=== PATIENT | female | born 1955 | race Caucasian/White ===

== ENCOUNTER → 2020-07-13 | Outpatient (CLI) | payer MEDICARE, OTHER ==
[~2020-07-13] MED LIST: AMLO1TAB24 PO; HYDR50TAB; LEVO175T2; RAMI1CAP26; SIMV10TA21
--- NOTE | 2020-07-28 12:44 | REP ---
DUPLEX EXTREMITY VENOUS ULTRASOUND BILATERAL STUDY WITH REFLUX EVALUATION HISTORY: Rule out reflux. Status post removal right greater saphenous vein. Chronic venous hypertension. Chronic ulcer. COMPARISON: No comparison images. FINDINGS: There is no evidence of deep vein thrombosis. In the right, the mid and distal greater saphenous vein is not apparent consistent with removal. A 7-mm segment of proximal greater saphenous vein is seen demonstrating 6.9 second duration reflux. The lesser saphenous vein is 6-mm in diameter without demonstrable reflux. Multiple collaterals are seen extending off the proximal greater saphenous vein and these show reflux as well. Reflux is seen in the common femoral vein segment 6.1 seconds in duration. Reflux was observed in the deep system in the proximal, mid and distal femoral vein as well ranging from 1.7 to 5.0 second duration. Reflux was observed in the popliteal vein as well 4.8 seconds in duration. On the left, the greater saphenous vein is not seen at mid thigh and knee level. Multiple collaterals are seen extending from the proximal segment of the greater saphenous vein with reflux. Reflux is seen in the proximal common femoral vein deep system, 6.6 seconds in duration. AP dimension of the remaining proximal greater saphenous vein on the left is 14 mm. A 7.3 second duration reflux is seen. No other deep system reflux or other superficial system reflux is seen. IMPRESSION: Bilateral superficial and deep system venous reflux as above. Findings consistent with prior removal of mid and distal greater saphenous veins bilaterally. MTDD
== END ==
LOC: M RAD 12:37
PROVIDERS: ATTEND Surgery
DX: I87.313 Chronic venous hypertension (idiopathic) with ulcer of bilateral lower extremity (principal); L97.812 Non-pressure chronic ulcer of other part of right lower leg with fat layer exposed; L97.822 Non-pressure chronic ulcer of other part of left lower leg with fat layer exposed

== ENCOUNTER → 2020-07-19 | Outpatient (POV) | payer MEDICARE, OTHER ==
--- NOTE | 2020-07-20 14:44 | IRCOV ---
[facility] IR Consult Office Visit IR Consult Office Visit DATE: Jul 19, 2020 Patient agreed to this telephone consultation. I spent 30 minutes reviewing patient's records, imaging and talking to the patient. REASON FOR CONSULTATION/CHIEF COMPLAINT: Venous stasis ulcers. Venous hypertension. HISTORY OF PRESENT ILLNESS: 64-year-old female with 25-year-old long history of venous problems in both lower extremities. She is referred for chronic right lower extremity venous stasis ulcers. She describes one ulcer just below the knee and a second ulcer on the inside of the right ankle. She does get lower extremity swelling which is somewhat helped by compression therapy. She reports several vein stripping procedures over the course of the past 25 years, at [place]. She continued to have lower extremities swelling, pain and ulcers. She then went on to varicose vein foam injections which she states have not helped. She's had no prior laser/ RF ablations therapy, always manual vein stripping. She states she is severely debilitated by the ulcers and weeping from her lower extremities. These affect her activities of daily living and her hobbies. She states she had a venogram performed to look at central venous drainage at [place] and reports there was no central venous occlusion. She denies prior DVT. ALLERGIES: Please see below. HOME MEDICATIONS: Please see below. PAST MEDICAL HISTORY: Venous stasis ulcer. Pseudomonas infection. Hypertension. Hypothyroid PAST SURGICAL HISTORY: Multiple bilateral lower extremity vein stripping. Varicose vein Foam therapy. Tonsillectomy knee surgery FAMILY HISTORY: History of varicose veins SOCIAL HISTORY: Nonsmoker. Occasional alcohol. Denies drugs. REVIEW OF SYSTEMS: Otherwise negative PHYSICAL EXAMINATION: No video on patient side LABORATORY DATA: No recent labs Imaging: I personally reviewed the bilateral lower extremity venous reflux study performed June 2020. Right lower extremity GSV ligated 2 cm from junction. There are collaterals and perforators in the region. There is reflux at the saphenofemoral junction. Beyond that there are small collaterals and perforators. The LSV appears dilated. Left lower extremity; GSV ligated 2 cm from junction. There are collaterals and perforators in the region. There is reflux at the saphenofemoral junction. Beyond that there are small collaterals and perforators. ASSESSMENT/PLAN: 64-year-old female with extensive bilateral lower extremity venous hypertension associated with pain, swelling and ulcers affecting her daily activities. These initially abated after her vein strippings however when she ceased compression therapy, they recurred. These are not helped by foam injections. Given the appearance of the most recent ultrasound, it's unlikely that we'll find a significant length of vein, catheterizable for laser treatment. However, a more detailed venous mapping to look for perforators and catheterizable superficial vein is worthwhile. We will schedule the patient for further detailed venous mapping and EVLT in the same session if appropriate. In the meantime, she would benefit from pantyhose bilateral compression therapy 30- 40 mmHg. We will provide the patient with a prescription and directions on where to obtain these. I spent 30 minutes in consultation with the patient. Thank you for this referral. CC KAREN Harley MD Jul 20, 2020 14:44
== END ==
LOC: M TMIRPOV 13:19
PROVIDERS: ATTEND Radiology Diagnostic Radiology
DX: I87.313 Chronic venous hypertension (idiopathic) with ulcer of bilateral lower extremity (principal); E03.9 Hypothyroidism, unspecified; I10 Essential (primary) hypertension

== ENCOUNTER → 2020-07-28 | Outpatient (CLI) | payer MEDICARE, OTHER ==
[~2020-07-28] MED LIST changes: +LIDOCAINE 1% MDV 20ML VIAL As Ordered ONE; +LIDOCAINE 2% MDV 20ML VIAL As Ordered ONE; +MIDAZOLAM INJ 2MG/2ML VIAL (J2250 PER 1MG) As Ordered ONE; +diphenhydrAMINE 50MG/ML VIAL (J1200) As Ordered ONE; +fentaNYL 100 MCG/2 ML INJECTION (J3010) As Ordered ONE
[2020-07-28 14:45] VITALS: BP 132/71
--- NOTE | 2020-08-01 09:38 | POST-OPPD ---
Postoperative Procedure Note Date Of Procedure: Jul 29, 2020 Time Of Procedure: 16:00 IR Endovenous laser treatment for right leg varicose vein. IR Ultrasound of the right leg. IR Tumescent anesthesia under ultrasound guidance. IR moderate sedation. Clinical information: Right leg varicose veins with limb swelling, aching and nonhealing venous ulcers. Multiple prior venous strippings and foam injections without relief. Physician: Dr. Bey. Procedure: The patient was advised of the benefits, risks and alternatives of the procedure and informed consent was obtained. The time-out was performed with verification of the patient's name, MRN, site of procedure and type of procedure to be performed. The patient was positioned in the supine position on the table. The site was prepped and draped in the usual sterile fashion. Moderate sedation was performed by the physician including the presence of an independent trained observer who assisted in monitoring the patient's level of consciousness and physiologic status. Following the administration of fentanyl and Versed , the physician spent 90 minutes of continuous face to face time with the patient. Ultrasound of the right lower extremity was performed. This demonstrates large varicose veins arising from the area of the ulceration along the medial lower extremity. There are multiple collaterals and perforators joining in. Veins are tortuous. There are 2 relatively straight segments of incompetent recanalized/additional greater saphenous vein in the thigh with interjecting incredibly tortuous varicosities. Initially, using ultrasound guidance, a automotive electrician vein just above the ulcer was accessed. A wire was advanced under ultrasound guidance, however less than 3 cm of the vein could be cannulated. Therefore this access was removed. The second access site of relatively straight, recanalized/additional, greater saphenous vein, was accessed under ultrasound guidance in the distal thigh. The wire was advanced into the vein under ultrasound guidance. Approximately 7 centimeter of continuous vein could be accessed from this access site. Central to this, there is extreme tortuosity, which prevent further cannulation to the saphenofemoral junction. The access site was anesthetized with lidocaine. Incision at the access site was made using a scalpel. The needle was removed and an access catheter was advanced over the wire under ultrasound guidance . The wire was removed and the laser fiber was advanced through the catheter under ultrasound guidance and positioned to the furthest cannulated point. Tumescent anesthesia was then injected under ultrasound guidance along the entire length of the vein to be treated. The patient was positioned in Trendelenburg. The laser was then activated and under ultrasound guidance used to laser 7 cm of this recanalize/additional greater saphenous vein, back to access point. Simultaneous manual compression was applied to the treated vein. Treatment: Wattage: 7 Time: 32 seconds Pullback rate 1 cm every 7 seconds Total Energy deposited 227 joules Treatment 50 joules per centimeter of vein. The fiber, catheter and sheath were removed, pressure held and hemostasis achieved. A sterile dressing was applied to the site. Second vein: The second access site was identified with ultrasound and anesthetized with lidocaine. The recanalized/additional greater saphenous was accessed under ultrasound guidance at the mid thigh, using a micro introducer needle. An 018 cope wire was advanced into the vein. Incision at the access site was made using a scalpel. The needle was removed and an access catheter was advanced over the wire under ultrasound guidance to > 2.5 centimeters from the saphenofemoral junction. The wire was removed and the laser fiber was advanced through the catheter under ultrasound guidance and positioned with the tip located 2.5 cm from the saphenous femoral junction. Tumescent anesthesia was then injected under ultrasound guidance along the entire length of the vein to be treated. Repeat ultrasound of the saphenofemoral junction was used to confirm positioning of the tip of the laser back 2.5 cm from junction. This is a 10 cm segment of recanalized proximal greater saphenous vein. The patient was positioned in Trendelenburg. The laser was then activated and under ultrasound guidance used to laser the Recanalized greater saphenous vein back to the access point. Simultaneous manual compression was applied to the treated vein. Treatment: Wattage: 7 Time: 71 seconds Pullback rate 1 cm every 7 seconds Total Energy deposited 500 joules Treatment 50 joules per centimeter of vein. The fiber, catheter and sheath were removed, pressure held and hemostasis achieved. A sterile dressing was applied to the site. Compression dressing was then applied to the leg, from lower leg to groin. The patient tolerated the procedure well and was returned to the PRU in stable condition. EBL: < 5 ml. Complications: None. Impression: 1. Ultrasound demonstrates incompetent additional or recanalized greater saphenous vein, with greater than 0.5 seconds of reflux. 2 relatively straight segments of vein identified with interjecting incredible tortuosity. 2. Successful catheterization of 2 segments of recanalized or additional greater saphenous vein in the thigh, one measuring 7 cm and the other 10 cm with EVLT therapy. 3. Compression dressing applied from lower leg to groin. Patient to return in 1 week for follow up ultrasound at which time the compression dressing will be switched to stockings. Thank you this referral. CC KAREN Harley MD Aug 01, 2020 09:38
== END ==
LOC: M IRPRO 09:27
PROVIDERS: ATTEND Radiology Diagnostic Radiology
DX: I83.811 Varicose veins of right lower extremity with pain (principal); I83.019 Varicose veins of right lower extremity with ulcer of unspecified site; L97.919 Non-pressure chronic ulcer of unspecified part of right lower leg with unspecified severity
CPT/HCPCS: 36478; 36479; 76940; 99152; 99153; C1769; J1200; J2250; J3010

== ENCOUNTER → 2020-08-04 | Outpatient (CLI) | payer MEDICARE, OTHER ==
[~2020-08-04] MED LIST changes: -LIDOCAINE 1% MDV 20ML VIAL As Ordered ONE; -LIDOCAINE 2% MDV 20ML VIAL As Ordered ONE; -MIDAZOLAM INJ 2MG/2ML VIAL (J2250 PER 1MG) As Ordered ONE; -diphenhydrAMINE 50MG/ML VIAL (J1200) As Ordered ONE; -fentaNYL 100 MCG/2 ML INJECTION (J3010) As Ordered ONE
--- NOTE | 2020-08-09 08:21 | REP ---
RIGHT LOWER EXTREMITY DUPLEX DOPPLER VENOUS ULTRASOUND HISTORY: Venous ablation. TECHNIQUE: Real-time compression and duplex Doppler interrogation of the right lower extremity deep venous system is performed. FINDINGS: The right common femoral, superficial femoral, and popliteal veins are fully compressible with transducer pressure. Demonstrates normal spontaneous and phasic flow without evidence of deep vein thrombosis. As expected, occlusive thrombus is seen in the right greater saphenous vein and anterior accessory greater saphenous vein. Thrombus in the greater saphenous vein is seen 1.5 cm from the saphenofemoral junction and extends peripherally for a length of about 13.5 cm. The greater saphenous vein in the mid to distal thigh demonstrates partial nonocclusive thrombus with a collateral vessel in that region and reflux noted. MTDD
== END ==
LOC: M RAD 07:59
PROVIDERS: ATTEND Radiology Diagnostic Radiology
DX: I82.811 Embolism and thrombosis of superficial veins of right lower extremity (principal)

== ENCOUNTER → 2020-08-09 | Outpatient (POV) | payer MEDICARE, OTHER ==
--- NOTE | 2020-08-10 13:24 | IRPN ---
[facility] IR Progress Note IR Progress Note DATE: Aug 09, 2020 Patient agreed to this telephone follow-up. Duration of call 5 minutes. FOLLOW-UP: Status post right leg EVLT for recanalized refluxing greater saphenous vein. Patient doing well. Denies pain or swelling. Patient is not able to wear thigh-high compression over the dressings from wound care. However patient states she is wearing the compression stockings up to the knees. Imaging: I personally reviewed the one-week follow-up ultrasound of the right lower extremity status post EVLT. The treated right greater saphenous vein demonstrates no further reflux and is appropriately thrombosed. No deep vein thrombosis. IMPRESSION: Status post successful right leg EVLT. Patient will return in 6 weeks for left leg EVLT. Patient requires bilateral compression therapy with pantyhose compression 30-40 mmHg. Prescription provided to the patient to get measured for the stockings. Continue follow up with wound care. Thank you for this referral CC KAREN Harley MD Aug 10, 2020 13:24
== END ==
LOC: M TMIRPOV 10:55
PROVIDERS: ATTEND Radiology Diagnostic Radiology
DX: Z48.812 Encounter for surgical aftercare following surgery on the circulatory system (principal)

== ENCOUNTER → 2021-06-08 | Outpatient (CLI) | payer MEDICARE, OTHER ==
--- NOTE | 2021-06-08 14:33 | REP ---
INDICATION: RT LOWER LEG W/ FAT LAYER EXPOSED NON PRES ULCER. COMPARISON: None. TECHNIQUE: Multiple ultrasonographic images of the deep venous structures of the right lower extremity were obtained from the inguinal ligament to the ankle. Venous compression techniques, color doppler imaging, and augmentation techniques were also obtained where appropriate. As per the ACR guidelines the anterior tibial vein can not be effectively evaluated. Only compression techniques in the calf on the peroneal and posterior tibial veins was attempted/performed. FINDINGS: There is no abnormal echogenic material seen within any of the visualized deep venous structures that would suggest acute thrombosis. Coaptation is unremarkable throughout. Doppler interrogation shows an expected response to respiratory variability and augmentation in the thigh. Compression techniques in the calf were unobtainable. The color flow images show what appears to be a normal vascular pattern throughout the thigh. Reflux was seen in the common femoral vein. An anterior accessory greater saphenous vein was not present. The patient has a history of previous greater saphenous vein stripping. Reflux was seen in what is likely a posterior communicating vein at all levels. Reflux was seen in the proximal and mid superficial femoral vein. No reflux was seen in the popliteal vein or distal superficial femoral vein. Reflux was seen in the lesser saphenous vein of 1.7 seconds duration the AP dimension of which measured 1.7 mm. Echogenic material is seen in the mid and distal portion await is believed to be a posterior communicating vein in the thigh extending distally into superficial calf varicosities. No thrombus formation was seen in the deep venous system of the thigh or calf, however, since the peroneal vein and posterior tibial vein were not adequately visualized in the calf a thrombus in those vessels cannot be ruled out. IMPRESSION: There is no ultrasonographic evidence of deep venous thrombosis involving any of the visualized deep venous structures of the right lower extremity as described above. Due to technical parameters calf vein DVT can not be ruled out. Deep vein reflux study as described above. <Electronically signed by Mathieu Myles > 06/08/21 [id number]
== END ==
LOC: M RAD 11:53
PROVIDERS: ATTEND Surgery
DX: L97.812 Non-pressure chronic ulcer of other part of right lower leg with fat layer exposed (principal); I87.9 Disorder of vein, unspecified; Z86.79 Personal history of other diseases of the circulatory system

== ENCOUNTER → 2021-06-13 | Outpatient (POV) | payer MEDICARE, OTHER ==
[~2021-06-13] VITALS: Ht 172.7 cm; Wt 104.5 kg
[2021-06-13 15:15] VITALS: BP 140/80
--- NOTE | 2021-06-15 14:06 | IRPN ---
[facility] IR Progress Note IR Progress Note DATE: Jun 13, 2021 FOLLOW-UP: 64-year-old female with 25-year-old long history of venous problems in both lower extremities. She has a chronic venous stasis ulcer of the right lower extremity which is refractory to healing. She reports several vein stripping procedures over the course of the past 25 years, at [place]. She continued to have lower extremities swelling, pain and ulcers. She then underwent varicose vein foam injections at [place], which also did not help. She then underwent right greater saphenous vein EVLT therapy with me in July 2020. 1 of her 2 venous ulcers then healed. But the remaining 1 is still nonhealing. IMAGING: I personally reviewed the right lower extremity venous reflux study performed 06/08/2021 and compared to the reflux study from 08/04/2020. Dilated anterior accessory right greater saphenous vein with greater than 0.5 seconds of reflux. IMPRESSION: 65-year-old female with 25 year long history of lower extremity venous insufficiency, with multiple vein strippings performed at outside hospital, foam injections for varicose veins at outside hospital and right GSV EVLT therapy with me. This resulted in 1 ulcer healing but 1 ulcer remains refractory to healing. She now has dilated right anterior accessory GSV with reflux. This would be amenable to EVLT therapy. We discussed the risks and benefits of the procedure and patient is willing to proceed. We will schedule the patient for right anterior accessory GSV ablation Thank you for this referral. Cc Dr. Ana SCHILLING,Venkatesh, I+O VSVenkatesh, I+O Vital Signs Date Time Temp Pulse Resp B/P (MAP) Pulse Ox O2 Delivery O2 Flow Rate FiO2 06/13/21 15:15 98.1 64 20 140/80 (100) 97 Room Air KAREN HELLER MD Jun 15, 2021 14:06
== END ==
LOC: M IRPOV 14:48
PROVIDERS: ATTEND Radiology Diagnostic Radiology
DX: I87.311 Chronic venous hypertension (idiopathic) with ulcer of right lower extremity (principal); L97.819 Non-pressure chronic ulcer of other part of right lower leg with unspecified severity

== ENCOUNTER → 2021-07-07 | Outpatient (CLI) | payer MEDICARE, OTHER ==
[~2021-07-07] MED LIST changes: +LIDOCAINE 1% MDV 20ML VIAL As Ordered ONE; +LIDOCAINE 2% MDV 20ML VIAL As Ordered ONE; +MIDAZOLAM INJ 2MG/2ML VIAL (J2250 PER 1MG) As Ordered ONE; +NS 1,000 ML IV SCH; +POTA10TA16 PO; +PROMETHAZINE INJ 25 MG/ML VIAL (J2550) As Ordered ONE; +diphenhydrAMINE 50MG/ML VIAL (J1200) As Ordered ONE; +fentaNYL 100 MCG/2 ML INJECTION (J3010) As Ordered ONE
--- NOTE | 2021-07-07 08:19 | IRHP ---
[facility] IR Pre-Procedure H & P General Date of Service: Jul 07, 2021 Procedure: Same Day Surgery Interval History and Physical I have seen the patient and reviewed last H & P performed within 30 days. There is no significant interval change. History of Present Illness Chief Complaint The patient is a 65-year-old female admitted with a reason for visit of Rt Leg Venous Htn. PRE-PROCEDURE DIAGNOSIS: Right lower extremity venous hypertension. Nonhealing venous ulcer HEART: Normal rate. LUNGS: Normal breathing at rest. ASA Classification ASA Classification: II-Mild systemic disease Mallampati Score: II NPO: Yes Problems with prior sedation: No Obstructive Sleep Apnea: No Plan moderate sedation Allergies Coded Allergies: No Known Allergies (Unverified , 07/07/21) Home Medications Scheduled Amlodipine Besylate (Amlodipine Besylate), 10 MG PO DAILY, (Reported) Potassium Chloride (Potassium Chloride), 1 TAB PO DAILY, (Reported) Miscellaneous Medications Hydrochlorothiazide (Hydrochlorothiazide), (Reported) Levothyroxine Sodium (Levothyroxine Sodium), (Reported) Ramipril (Ramipril), (Reported) Simvastatin (Simvastatin), (Reported) VS, I&O, 24H, Fishbone Vital Signs/I&O Vital Signs Date Time Temp Pulse Resp B/P (MAP) Pulse Ox O2 Delivery O2 Flow Rate FiO2 07/07/21 07:46 98.3 59 16 98 Room Air KAREN HELLER MD Jul 07, 2021 08:19
[2021-07-07 10:00] VITALS: BP 139/72
--- NOTE | 2021-07-10 13:53 | IRPON ---
IR Postoperative Note Date Of Procedure: Jul 07, 2021 Time Of Procedure: 16:00 IR Postoperative Note IR Ultrasound-guided right lower extremity venous access. IR Ultrasound of the right leg. IR Tumescent anesthesia under ultrasound guidance. IR Moderate sedation. Clinical information: Right lower extremity venous hypertension with nonhealing venous ulcers. Multiple prior vein ablations, vein strippings and sclerotherapy with persistent right lower extremity swelling and nonhealing ulcer. Physician: Dr. Bey. Procedure: The patient was advised of the benefits, risks and alternatives of the procedure and informed consent was obtained. The time-out was performed with verification of the patient's name, MRN, site of procedure and type of procedure to be performed. The patient was positioned in the supine position on the table. The site was prepped and draped in the usual sterile fashion. Moderate sedation was performed by the physician including the presence of an independent trained RN who assisted in monitoring the patient's level of consciousness and physiologic status. Following the administration of fentanyl and Versed , the physician spent 60 minutes of continuous face to face time with the patient. Ultrasound of the right lower extremity demonstrates multiple dilated collateral veins, arising off the common femoral junction, coursing superficially along the medial right thigh, and continue distally beyond the knee. There is less than 5 cm of straight vein prior to drainage into the common femoral junction and this demonstrates greater than 0.5 seconds of reflux. Caudal to this, the vein is completely superficial and severely tortuous. Multiple collaterals and perforators draining into this trunk. The best possible access site was identified, mid thigh, with ultrasound guidance. The vein was accessed under ultrasound guidance at the mid thigh, using a micro introducer needle. An 018 cope wire was advanced into the vein, under ultrasound guidance but could not be used to cannulate the segment of vein, back to the common femoral junction. The vein thrombosed upon entry. Needle was removed, pressure held and hemostasis achieved. A sterile dressing was applied to the site. Complication: None EBL: Less than 5 mL Impression: Patient with chronic history of right lower extremity venous hypertension, multiple prior venous ablations and foam sclerotherapy, presents for persistent nonhealing venous ulcer. Ultrasound demonstrates a relatively short segment of superficial vein, arising off the common femoral junction which is straight for about 5 cm and then becomes increasingly superficial and tortuous down to the knee and beyond. Numerous collaterals and perforators drain into this trunk, in the proximal, mid and distal thigh. Anatomy is not favorable for percutaneous access and EVLT therapy. Patient may or may not benefit from repeat foam sclerotherapy. I will discuss this with the patient and may refer her outside for foam sclerotherapy. KAREN BEY MD Jul 10, 2021 13:53
== END ==
LOC: M IRPRO 07:26
PROVIDERS: ATTEND Radiology Diagnostic Radiology
DX: I87.311 Chronic venous hypertension (idiopathic) with ulcer of right lower extremity (principal); I82.401 Acute embolism and thrombosis of unspecified deep veins of right lower extremity; L97.919 Non-pressure chronic ulcer of unspecified part of right lower leg with unspecified severity; Z79.890 Hormone replacement therapy; Z79.899 Other long term (current) drug therapy
CPT/HCPCS: 36465; 76942; 99152; 99153; C1769; J2250; J3010

== ENCOUNTER → 2021-07-11 | Outpatient (POV) | payer MEDICARE, OTHER ==
[~2021-07-11] VITALS: Ht 172.7 cm; Wt 104.6 kg
[~2021-07-11] MED LIST changes: -LIDOCAINE 1% MDV 20ML VIAL As Ordered ONE; -LIDOCAINE 2% MDV 20ML VIAL As Ordered ONE; -MIDAZOLAM INJ 2MG/2ML VIAL (J2250 PER 1MG) As Ordered ONE; -NS 1,000 ML IV SCH; +POTA-149 PO; -POTA10TA16 PO; -PROMETHAZINE INJ 25 MG/ML VIAL (J2550) As Ordered ONE; -diphenhydrAMINE 50MG/ML VIAL (J1200) As Ordered ONE; -fentaNYL 100 MCG/2 ML INJECTION (J3010) As Ordered ONE
[2021-07-11 10:25] VITALS: BP 162/66
== END ==
LOC: M IRPOV 10:18
PROVIDERS: ATTEND Radiology Diagnostic Radiology
DX: I80.01 Phlebitis and thrombophlebitis of superficial vessels of right lower extremity (principal); I87.8 Other specified disorders of veins

== ENCOUNTER → 2021-08-28 | Outpatient (CLI) | payer MEDICARE, OTHER ==
[~2021-08-28] MED LIST changes: -POTA-149 PO; +POTA10TA16 PO
--- NOTE | 2021-08-28 10:31 | REP ---
INDICATION: VENOUS INSUFFICIENCY RT LEG / S/P LASER ? DVT. COMPARISON: 08/04/2000 TECHNIQUE: Multiple ultrasonographic images of the deep venous structures of the right thigh were obtained from the level of the common femoral vein to the popliteal vein in the longitudinal and transverse scan planes along with Doppler interrogation and color flow Doppler imaging. FINDINGS: The common femoral, superficial femoral and popliteal veins of the deep system of the thigh are fully compressible throughout their course. Technologist notes she is unable to visualize calf veins proximal to mid calf due to swelling and body habitus considerations. Color flow in the deep veins of the thigh with normal in respiratory variation and augmented flow were seen on Doppler interrogation. The greater saphenous vein is again noted and is filled with clot and no flow from about 1.6 cm from its junction extending distally. This is unchanged. For comparison, the left common femoral vein was also examined and is unremarkable. IMPRESSION: There is no ultrasonographic evidence of deep venous thrombosis involving any of the visualized deep venous structures of the right thigh as described above. The proximal and mid calf veins are not visible due to swelling and patient body habitus considerations. Thrombosed greater saphenous vein as expected from 1.6 cm below its junction in the groin to the knee, unchanged from the previous study. Accredited by the [employer] in Vascular Peripheral Ultrasound. <Electronically signed by Kristopher Martin > 08/28/21 1027
== END ==
LOC: M RAD 09:48
DX: I82.811 Embolism and thrombosis of superficial veins of right lower extremity (principal); I87.2 Venous insufficiency (chronic) (peripheral)

== ENCOUNTER → 2022-06-18 | Outpatient (CLI) | payer MEDICARE, OTHER ==
[~2022-06-18] MED LIST changes: +POTA-149 PO; -POTA10TA16 PO
== END ==
LOC: M RAD 08:50
DX: I87.311 Chronic venous hypertension (idiopathic) with ulcer of right lower extremity (principal)

== ENCOUNTER 2025-02-24 05:56 | Day surgery (SDC) | payer MEDICARE, OTHER ==
[~2025-02-24] VITALS: Ht 172.7 cm; Wt 91.2 kg
[~2025-02-24 05:56] MED LIST changes: -BUPR-670
[2025-02-24] MEDS ORDERED: LR 1,000 ML IV SCH ×2 (06:10→08:40)
[2025-02-24] MEDS ORDERED: propofoL 200 MG/20 ML VIAL As Ordered ONE (06:49)
[2025-02-24] MEDS ORDERED: LIDOCAINE 2% 100MG/5ML SDV (FOR ANES.) As Ordered ONE (06:50)
[2025-02-24] MEDS ORDERED: ROCURONIUM BROMIDE 50MG/5ML VIAL As Ordered ONE (06:50)
[2025-02-24] MEDS: LIDOCAINE PRES-FREE 2% 10ML AMP INH ONE (07:15)
[2025-02-24] MEDS: ALBUTEROL SULFATE 2.5MG/0.5ML INH CONCENTRATE NEB SOLN INH ONE (07:15)
[2025-02-24] MEDS: CETACAINE SPRAY 5GM As Ordered ONE (07:43)
[2025-02-24] MEDS: THROMBIN 5,000 UNITS VIAL As Ordered ONE (08:25)
[2025-02-24] MEDS: EPINEPHrine 1MG/10ML SYRINGE 1.5IN As Ordered ONE (08:25)
[2025-02-24] MEDS ORDERED: PHENYLephrine 500MCG 5ML (100MCG/ML) SYRINGE As Ordered ONE (08:25)
[2025-02-24] MEDS ORDERED: SUGAMMADEX SODIUM 500 MG/5 ML VIAL (BRIDION) As Ordered ONE (08:32)
[2025-02-24] MEDS ORDERED: oxyCODONE 5MG TAB PO PRN (08:40)
[2025-02-24] MEDS ORDERED: ONDANSETRON 4MG 2ML VIAL IV PRN (08:40)
[2025-02-24] MEDS ORDERED: fentaNYL 100 MCG/2 ML INJECTION IV PRN (08:40)
[2025-02-24] MEDS ORDERED: HYDROMORPHONE HCL 0.5 MG/ 0.5 ML SYRINGE IV PRN (08:40)
[2025-02-24 10:00] VITALS: BP 144/67; TEMP 97.4; O2SAT 95
[2025-02-25] MEDS ORDERED: BUPR-670 (11:21)
== END 2025-02-24 10:08 | disposition home or self-care (01) ==
LOC: M SDC 05:56
PROVIDERS: ATTEND Internal Medicine Pulmonary Disease
DX: C34.12 Malignant neoplasm of upper lobe, left bronchus or lung (principal); I10 Essential (primary) hypertension; E78.5 Hyperlipidemia, unspecified; E03.9 Hypothyroidism, unspecified; F41.9 Anxiety disorder, unspecified; Z79.899 Other long term (current) drug therapy
CPT/HCPCS: 31623; 31625; 31641; 31653; 71045; 88104; 88173; 88305; G0463; J0171; J2371

== ENCOUNTER → 2025-02-24 | Outpatient (CLI) | payer MEDICARE, OTHER ==
[~2025-02-24] MED LIST changes: +BUPR-670; -HYDR50TAB; +HYDR50TAB PO; +LEVO150T7 PO; +MIRA50TA2 PO; +RAMI10CA64 PO; -RAMI1CAP26; -SIMV10TA21; +SIMV10TA21 PO
== END ==
LOC: M ONCR 10:04
PROVIDERS: ATTEND General Practice
DX: C34.12 Malignant neoplasm of upper lobe, left bronchus or lung (principal); Z87.891 Personal history of nicotine dependence; Z80.3 Family history of malignant neoplasm of breast; Z80.8 Family history of malignant neoplasm of other organs or systems; Z79.890 Hormone replacement therapy; Z79.899 Other long term (current) drug therapy

== ENCOUNTER → 2025-03-09 | Outpatient (CLI) | payer MEDICARE, OTHER ==
[~2025-03-09] VITALS: Ht 172.7 cm; Wt 90.5 kg
[~2025-03-09] MED LIST changes: +BUPR-670; +ONDA-84 PO; +PROC10TA5 PO
[2025-03-09 12:55] VITALS: TEMP 98
[2025-03-09] MEDS: NS (Normal Saline) 0.9% 1,000 ML IV SCH (13:24)
[2025-03-09] MEDS: ceFAZolin SODIUM 2 GM in DEXTROSE 5% (D5W) ADV/MINI-BAG 50 ML IV ONE (13:24)
[2025-03-09] MEDS: fentaNYL 100 MCG/2 ML INJECTION IV PRN (15:05)
[2025-03-09] MEDS: MIDAZOLAM INJ 2MG/2ML VIAL IV PRN (15:05)
[2025-03-09] MEDS: LIDOCAINE 1% MDV 20ML VIAL SC SCH (15:20)
[2025-03-09 15:50] VITALS: BP 120/62; O2SAT 96
== END ==
LOC: M IRPRO 12:36
PROVIDERS: ATTEND General Practice
DX: C34.12 Malignant neoplasm of upper lobe, left bronchus or lung (principal)
CPT/HCPCS: 36561; C1894; J0690; J1642; J2250; J3010

== ENCOUNTER → 2025-06-04 | Outpatient (CLI) | payer MEDICARE, OTHER ==
[~2025-06-04] MED LIST changes: +BIOT1CAP2 PO; +ELIQ5TAB PO; +ISOVUE-370 76% 100 ML VIAL As Ordered ONE; +LEVO137T2 PO; +LIDO30CR18 TOP
== END ==
LOC: M RAD 14:55
PROVIDERS: ATTEND Internal Medicine Medical Oncology
DX: C34.90 Malignant neoplasm of unspecified part of unspecified bronchus or lung (principal); I70.0 Atherosclerosis of aorta
CPT/HCPCS: 71260; 74177; Q9967

== ENCOUNTER → 2025-06-22 | Outpatient (CLI) | payer MEDICARE, OTHER ==
[~2025-06-22] MED LIST changes: -ISOVUE-370 76% 100 ML VIAL As Ordered ONE; +PEPC1TAB5 PO; +PRED50TA57 PO
== END ==
LOC: M PLARAD 10:16
PROVIDERS: ATTEND Internal Medicine Medical Oncology
DX: C34.12 Malignant neoplasm of upper lobe, left bronchus or lung (principal)
CPT/HCPCS: 78815; A9552

== ENCOUNTER → 2025-06-25 | Outpatient (CLI) | payer MEDICARE, OTHER | LOC: M ONCR 07:55 | PROVIDERS: ATTEND General Practice | DX: C34.12 Malignant neoplasm of upper lobe, left bronchus or lung (principal); Z79.620 Long term (current) use of immunosuppressive biologic; Z79.899 Other long term (current) drug therapy; Z87.891 Personal history of nicotine dependence; Z92.3 Personal history of irradiation ==

== ENCOUNTER → 2025-09-13 | Outpatient (CLI) | payer MEDICARE, OTHER ==
[~2025-09-13] MED LIST changes: +ISOVUE-370 76% 100 ML VIAL As Ordered ONE
== END ==
LOC: M RAD 13:15
PROVIDERS: ATTEND Internal Medicine Medical Oncology
DX: C34.90 Malignant neoplasm of unspecified part of unspecified bronchus or lung (principal)
CPT/HCPCS: 71260; 74177; Q9967

== ENCOUNTER → 2025-10-19 | Outpatient (CLI) | payer MEDICARE, OTHER ==
[~2025-10-19] MED LIST changes: +HYDR1CRE30 TOP; -ISOVUE-370 76% 100 ML VIAL As Ordered ONE
== END ==
LOC: M ONCR 12:29
PROVIDERS: ATTEND General Practice
DX: C34.12 Malignant neoplasm of upper lobe, left bronchus or lung (principal); J84.10 Pulmonary fibrosis, unspecified; Z87.891 Personal history of nicotine dependence; Z92.21 Personal history of antineoplastic chemotherapy; Z92.3 Personal history of irradiation; Z79.01 Long term (current) use of anticoagulants; Z79.620 Long term (current) use of immunosuppressive biologic; Z79.899 Other long term (current) drug therapy